=== PATIENT | male | born 1980 | race Caucasian/White ===

== ENCOUNTER 2019-03-17 13:50 | Outpatient (REF) | payer BC, SELFPAY ==
[2019-03-17 22:34] LABS: Anion Gap 11.1 mmol/L (3-11); BUN 21 mg/dL (7-18); CO2 23.9 mmol/L (21.0-32.0); CREATININE 1.18 mg/dL (0.70-1.30); Calcium 9.3 mg/dL (8.5-10.1); Calculated LDL 98 mg/dL; Chloride 104 mmol/L (98-107); Cholesterol 151 mg/dL (50-200); Glucose 139 mg/dL (70-100); HDL Cholesterol 42 mg/dL (40-60); Potassium 4.4 mmol/L (3.5-5.1); Sodium 139 mmol/L (136-145); Triglyceride 56 mg/dL (30-150)
== END 2019-03-17 14:10 ==
LOC: NCHCN 13:50
PROVIDERS: PCP Specialist/Technologist Athletic Trainer; Visit Provider Specialist/Technologist Athletic Trainer
DX: I10 Essential (primary) hypertension (principal)
CPT/HCPCS: 80048; 80061; 83721

== ENCOUNTER 2019-06-16 22:11 | Outpatient (REF) | payer BC, SELFPAY ==
[2019-06-18 12:44] LABS: C-Peptide 6.2 ng/mL (1.1 - 4.4)
== END 2019-06-16 22:31 ==
LOC: NCHCN 22:11
PROVIDERS: PCP Specialist/Technologist Athletic Trainer; Visit Provider Specialist/Technologist Athletic Trainer
DX: E11.65 Type 2 diabetes mellitus with hyperglycemia (principal)
CPT/HCPCS: 84681

== ENCOUNTER 2020-04-02 14:45 | Outpatient (REF) | payer BC, SELFPAY ==
[2020-04-05 06:33] LABS: SARS-CoV-2 RNA Undetected (Undetected)
== END 2020-04-02 15:05 ==
LOC: NCHCN 14:45
PROVIDERS: PCP Specialist/Technologist Athletic Trainer; Visit Provider Nurse Practitioner Family
DX: Z20.828 Contact with and (suspected) exposure to other viral communicable diseases (principal)
CPT/HCPCS: U0003

== ENCOUNTER 2021-07-15 12:19 | Outpatient (REF) | payer BC, SELFPAY ==
[2021-07-15 15:49] LABS: Anion Gap 9.9 mmol/L (3-11); BUN 21 mg/dL (7-18); CO2 26.1 mmol/L (21.0-32.0); Calcium 9.4 mg/dL (8.5-10.1); Chloride 98 mmol/L (98-107); Glucose 117 mg/dL (74-106); Potassium 4.6 mmol/L (3.5-5.1); Sodium 134 mmol/L (136-145)
[2021-07-15 15:53] LABS: HCG Quant, Pregnancy < 1 mIU/mL
[2021-07-17 11:44] LABS: AFP Tumor Marker <2.5 ng/mL (<8.1)
== END 2021-07-15 12:20 | disposition home or self-care (01) ==
LOC: NCHCN 12:19
PROVIDERS: PCP Specialist/Technologist Athletic Trainer; Visit Provider Nurse Practitioner Family
DX: Z85.47 Personal history of malignant neoplasm of testis (principal); E11.9 Type 2 diabetes mellitus without complications; I10 Essential (primary) hypertension
CPT/HCPCS: 80048; 82105; 83036; 84702

== ENCOUNTER 2022-12-08 11:49 | Outpatient (REF) | payer BC, SELFPAY ==
[2022-12-08 16:21] LABS: Hemoglobin A1C 7.1 % (<5.7)
[2022-12-08 16:52] LABS: Anion Gap 9.5 mmol/L (3-11); BUN 18 mg/dL (7-18); CO2 24.5 mmol/L (21.0-32.0); CREATININE 1.1 mg/dL (0.70-1.30); Calcium 9.7 mg/dL (8.5-10.1); Chloride 101 mmol/L (98-107); Cholesterol 145 mg/dL (<200); Estimated GFR 84.89 (mL/min/1.73m2); Glucose 137 mg/dL (74-106); Potassium 4.6 mmol/L (3.5-5.1); Sodium 135 mmol/L (136-145); Triglyceride 34 mg/dL (<150)
[2022-12-08 16:56] LABS: HCG Quant, Pregnancy < 1 mIU/mL
[2022-12-08 18:58] LABS: Calculated LDL 84 mg/dL (<100); HDL Cholesterol 55 mg/dL (40-60)
[2022-12-10 10:10] LABS: AFP Tumor Marker <2.5 ng/mL (<8.1)
== END 2022-12-08 11:50 | disposition home or self-care (01) ==
LOC: NCHCN 11:49
PROVIDERS: PCP Specialist/Technologist Athletic Trainer; Visit Provider Nurse Practitioner Family
DX: E11.9 Type 2 diabetes mellitus without complications (principal); I10 Essential (primary) hypertension; Z85.47 Personal history of malignant neoplasm of testis
CPT/HCPCS: 80048; 80061; 82105; 83036; 84702

== ENCOUNTER 2023-03-05 11:58 | Outpatient (REF) | payer BC, SELFPAY ==
[2023-03-05 16:19] LABS: Hemoglobin A1C 6.9 % (<5.7)
[2023-03-05 16:21] LABS: Anion Gap 10.7 mmol/L (3-11); BUN 24 mg/dL (7-18); CO2 24.3 mmol/L (21.0-32.0); Calcium 9.7 mg/dL (8.5-10.1); Chloride 101 mmol/L (98-107); Estimated GFR 95.18 (mL/min/1.73m2); Glucose 134 mg/dL (74-106); Potassium 4.5 mmol/L (3.5-5.1); Sodium 136 mmol/L (136-145)
== END 2023-03-05 11:59 | disposition home or self-care (01) ==
LOC: NCHCN 11:58
PROVIDERS: PCP Specialist/Technologist Athletic Trainer; Visit Provider Nurse Practitioner Family
DX: I10 Essential (primary) hypertension (principal); E11.9 Type 2 diabetes mellitus without complications
CPT/HCPCS: 80048; 83036

== ENCOUNTER 2023-10-29 09:45 | Outpatient (REF) | payer BC, SELFPAY ==
[2023-10-29 16:22] LABS: Hemoglobin A1C 6.6 % (<5.7)
== END 2023-10-29 09:46 | disposition home or self-care (01) ==
LOC: NCHCN 09:45
PROVIDERS: PCP Specialist/Technologist Athletic Trainer; Visit Provider Nurse Practitioner Family
DX: E11.9 Type 2 diabetes mellitus without complications (principal)
CPT/HCPCS: 83036

== ENCOUNTER 2024-09-29 17:54 | Outpatient (REF) | payer BC, SELFPAY ==
[2024-09-29 19:35] LABS: Hemoglobin A1C 7.9 % (<5.7)
[2024-09-29 21:00] LABS: ALT 41 U/L (16-63); AST 26 U/L (15-37); Albumin 4.1 g/dL (3.4-5.0); Alkaline Phosphatase 93 U/L (46-116); Anion Gap 11.9 mmol/L (3-11); BUN 27 mg/dL (7-18); Bilirubin, Total 0.37 mg/dL (0.2-1.0); CO2 23.1 mmol/L (21.0-32.0); Calcium 9.7 mg/dL (8.5-10.1); Chloride 102 mmol/L (98-107); Glucose 117 mg/dL (74-106); Potassium 4.4 mmol/L (3.5-5.1); Sodium 137 mmol/L (136-145); Total Protein 7.9 g/dL (6.4-8.2); Vitamin D 25 Total 14.4 ng/mL (30-100)
[2024-09-30 18:47] LABS: AFP Tumor Marker <2.5 ng/mL (<8.1)
[2024-10-03 13:09] LABS: Beta-HCG, Quant, Tumor Marker <0.6 IU/L (<1.4)
== END 2024-09-29 17:55 | disposition home or self-care (01) ==
LOC: NCHCN 17:54
PROVIDERS: PCP Specialist/Technologist Athletic Trainer; Visit Provider Nurse Practitioner Family
DX: Z00.00 Encounter for general adult medical examination without abnormal findings (principal); E11.9 Type 2 diabetes mellitus without complications; Z85.47 Personal history of malignant neoplasm of testis; I10 Essential (primary) hypertension
CPT/HCPCS: 80053; 82306; 82105; 83036; 84702